=== PATIENT | female | born 1965 | race Caucasian/White ===

== ENCOUNTER → 2019-06-27 14:02 | Outpatient (CLI) | payer BC, SELFPAY ==
--- NOTE | 2019-06-27 | DI.MG.S_ITS ---
BILATERAL DIGITAL SCREENING MAMMOGRAM 3D/2D WITH CAD: 06/27/2019 CLINICAL: Routine screening. Comparison is made to exams dated: 09/02/2014 mammogram, 03/14/2013 mammogram, and 10/27/2009 mammogram - [facility]. The tissue of both breasts is heterogeneously dense. This may lower the sensitivity of mammography. Current study was also evaluated with a Computer Aided Detection (CAD) system. There are grouped calcifications in the right breast at 11 o'clock middle depth. No other significant masses, calcifications, or other findings are seen in either breast. IMPRESSION: INCOMPLETE: NEEDS ADDITIONAL IMAGING EVALUATION The grouped calcifications in the right breast are indeterminate. Spot magnification views are recommended. This exam was interpreted at Station ID: [id number]. NOTE: For mammograms, a report in lay terms will be sent to the patient. Approximately 15% of breast malignancies will not be visualized mammographically. In the management of a palpable breast mass, a negative mammogram must not discourage biopsy of a clinically suspicious lesion. Electronically Signed By: Gisela clarke/roxann:06/27/2019 14:38:09 letter sent: Additional Imaging Needed ACR BI-RADS Category 0: Incomplete 3340F
== END ==
PROVIDERS: PCP Student in an Organized Health Care Education/Training Program; Visit Provider Student in an Organized Health Care Education/Training Program
DX: Z12.31 Encounter for screening mammogram for malignant neoplasm of breast (principal); M85.851 Other specified disorders of bone density and structure, right thigh; Z78.0 Asymptomatic menopausal state; E21.3 Hyperparathyroidism, unspecified
CPT/HCPCS: 77063; 77067; 77080

== ENCOUNTER → 2019-07-17 13:37 | Outpatient (CLI) | payer BC, SELFPAY ==
--- NOTE | 2019-07-17 | DI.MG.S_ITS ---
UNILATERAL RIGHT DIGITAL DIAGNOSTIC MAMMOGRAM 3D/2D WITH ADDITIONAL VIEWS: 07/17/2019 CLINICAL: Additional evaluation requested from prior study. Comparison is made to exams dated: 06/27/2019 mammogram, 03/14/2013 mammogram, and 10/27/2009 mammogram - [facility]. The tissue of right breast is heterogeneously dense. This may lower the sensitivity of mammography. Previously identified grouped calcifications in the superior lateral right breast at 11 o'clock middle depth described on comparison screening mammograms of 06/27/19 persist with additional views. These demonstrate partial layering on lateral and magnification views, suggestive of benign milk of calcium calcifications. IMPRESSION: PROBABLY BENIGN Previously identified grouped calcifications in the superior lateral right breast at 11 o'clock middle depth described on comparison screening mammograms of 06/27/19 persist with additional views. A follow-up diagnostic mammogram in 6 months is recommended to demonstrate stability. The patient is advised to monitor her breasts and to return sooner for reevaluation if she feels anything grow or change in her breasts. This exam was interpreted at Station ID: [id number]. NOTE: For mammograms, a report in lay terms will be sent to the patient. Approximately 15% of breast malignancies will not be visualized mammographically. In the management of a palpable breast mass, a negative mammogram must not discourage biopsy of a clinically suspicious lesion. Electronically Signed By: Los Hill M.D. ecl/:07/17/2019 14:29:22 letter sent: Followup Recommended ACR BI-RADS Category 3: Probably benign 3343F
== END ==
PROVIDERS: PCP Student in an Organized Health Care Education/Training Program; Visit Provider Student in an Organized Health Care Education/Training Program
DX: R92.8 Other abnormal and inconclusive findings on diagnostic imaging of breast (principal); R92.1 Mammographic calcification found on diagnostic imaging of breast
CPT/HCPCS: 77065; G0279

== ENCOUNTER 2019-12-08 12:39 | Day surgery (SDC) | payer BC, SELFPAY ==
--- NOTE | 2019-12-08 | PATH_ITS ---
[facility] Accession Number: [id number] . 01 Material submitted: . colon - CECAL COLON POLYP 6-8MM . 02 Diagnosis: Cecum Polyp, 6-8 MM, Biopsy: Tubular adenoma. [facility] 12/09/2019 1158 Local . 02 Electronically signed: . Hardik Davenport MD, PhD, Pathologist NPI- [id number] . 01 Gross description: . CECAL COLON POLYP 6-8MM: Received in formalin are multiple fragment(s) of queen, soft tissue measuring 0.1 x 0.1 x 0.1 cm to 0.2 x 0.2 x 0.2 cm submitted entirely in 1 cassette(s) /[facility] 12/08/2019 2204 Local . 02 Pathologist provided ICD-10: D12.0 . 02 CPT . 637241 Performed at: 01 [facility] [address], [place], [place] [id number] MD Donnell Rice MD Phone: [phone] Performed at: 02 [facility] [address] , [place], [place] [id number] MD Alfreda Pimentel MD Phone: [phone]
--- NOTE | 2019-12-08 08:04 | PM.OP.ENDO ---
Operative Date/Time/Diagnoses Date of procedure: 12/08/19 Time of procedure: 13:51 Pre-op diagnosis: 1. Screening for colon cancer Post-op diagnosis: same (Cecum polyp x1, 8 mm, removed with cold biopsy forceps) Procedure & Clinicians Indications: Screening for colon cancer Surgeon: Jumana Argueta Procedure Notes SCOAP/Timeout: 13:51 Procedure in detail: ENDOSCOPIST: Jumana Argueta MD Sedation RN: Livia Saenz Rn Sedation start time: 13:51 Sedation end time: 14:13 PROCEDURE: Colonoscopy with biopsy INDICATIONS: 1. Screening for colon cancer MEDICATION: Levsin 0.125 mg sublingual, incremental doses of Versed and fentanyl until appropriate level sedation achieved. ASA CLASS: 2 CECAL WITHDRAWAL TIME: 13 minutes COMPLICATIONS: None. EXTENT OF PROCEDURE: Cecum. QUALITY OF PREP: Good with portions of liquid stool. PROCEDURE: Prior to insertion of the colonoscope, a digital rectal examination was accomplished with circumferential palpation of the distal rectal mucosa without significant findings being noted. The high-definition pediatric colonoscope was passed into the rectum in the usual fashion and advanced over to the cecum without difficulty. The ileocecal valve, appendiceal stoma, and medial wall all could be inspected and an 8 mm polyp was seen and removed with cold biopsy forceps. ASCENDING COLON: As the colonoscope was withdrawn, care was taken to expose and inspect the haustral folds and no abnormalities were seen. HEPATIC FLEXURE: Normal no polyps, diverticula or other abnormalities. TRANSVERSE COLON: Normal no polyps, diverticula or other abnormalities. DESCENDING COLON: Normal no polyps, diverticula or other abnormalities. SIGMOID COLON: Normal no polyps, diverticula or other abnormalities. RECTUM: Normal. J maneuver was produced. There was no significant perianal disease. The J maneuver was broken. The remainder of the rectum was inspected and there was no external hemorrhoid disease. The scope was withdrawn. IMPRESSION: 1. Cecal polyp x1, 8 mm, removed with cold biopsy forceps PLAN: 1. Follow-up in clinic status post pathology results. The possibility of a missed lesion including a malignancy has been discussed with the patient previously. Potential alarm symptoms have been discussed and should be reported immediately. Scope withdrawal time: 13 Sedation minutes: 22 Complications: none Post-procedure Recommendations: Will call with biopsy results Follow up: weeks (2) Disposition: PACU
--- NOTE | 2019-12-08 08:05 | P.HP_ITS ---
History of Present Illness History of Present Illness Date Patient Seen: 12/08/19 Time Patient Seen: 13:50 Chief complaint: [id number] Narrative: 54 Years Old Female seen today for consideration of a screening colonoscopy. She has never had a colonoscopy. There have been no lower GI symptoms suggesting disease such as change in bowel habits, bleeding, abdominal pain or anemia. There's been no family history of colon cancer or colon polyps. Overall health issues have been stable, including no major cardiac events for at least 6 weeks. Current Medications (verified): None Allergies (verified): 1) Amoxicillin (Critical) Past Medical History: Actinic keratoses (lichenoid) (ICD-702.0) (XKM76-U98.0) Nevus (ICD-216.9) (AZN29-V97.9) MAMMOGRAM, ABNORMAL (ICD-793.80) (HEB18-N78.8) Skin tags; irritated/inflammed (ICD-701.9) (QDJ36-O88.8) Seborrheic keratosis inflamed (ICD-702.11) (YMG21-T88.0) Skin lesion (ICD-709.9) (NDJ29-L25.9) HYPERLIPIDEMIA (ICD-272.4) (PTL94-I84.5) Parathyroid adenoma (ICD-227.1) (POB70-U31.1) Hyperparathyroidism, unspecified (ICD-252.00) (JYW93-H99.3) HYPERCALCEMIA (ICD-275.42) (QIR37-Q97.52) OSTEOPENIA (ICD-733.90) (DCX82-X94.9) MENOPAUSAL SYMPTOMS (ICD-627.2) (ZRB88-Y59.1) Obesity (ICD-278.00) (GVB89-Y34.9) Past Surgical History: Reviewed history from 04/13/2016 and no changes required: Uterine Myomectomy (02/2000) parathyroid 07/2015 Family History: Reviewed history from 03/07/2019 and no changes required: Mother: Diabetes Family Hx Diabetes Social History: Reviewed history from 09/04/2014 and no changes required: Marital Status: Children: 2 Son's Zane Occupation: Graphic Design Household Members: Fady-, and two sons. Education: AA @ [employer] Alcohol drinks/day: 0 >5/day in last 3 mos: no Caffeine use/day: 1-2 Type of Exercise: Taekwondo Exercise Times per Week: 2 Guns in home: yes Dental Care w/in 6 mos.: no Sun Exposure: frequently Seat Belt Use: 100% Smoking Status: never smoker Drug Use: never HIV High Risk Behavior: no Meds Home Medications and Allergies Home Medications Medication Instructions Recorded Confirmed Type No Known Home Medications 12/08/19 12/08/19 History Allergies Allergy/AdvReac Type Severity Reaction Status Date / Time Penicillins [PENICILLINS] Allergy Severe I TURN Verified 12/08/19 13:42 INTO ONE GIANT HIVE Review of Systems Review of Systems ROS: Yes All systems reviewed with the patient and are negative except as otherwise documented Exam Narrative Exam Narrative: General: Alert and oriented, appearing stated age and in no acute distress. Head: Head normocephalic/atraumatic. Neck: Neck soft and supple, no lymphadenopathy. Lungs: Clear to auscultation bilaterally, no wheezes, rhonchi or rales. Heart: Normal S1 and S2 with regular rate and rhythm, no audible murmurs, rubs or gallops. Abdomen: Soft, non-tender, non-distended, no organomegaly. Possitive bowel sounds. Psych: Alert and oriented x 3. Assessment & Plan Assessment & Plan narrative: Problem # 1: Colon Cancer Screening 1. Colonoscopy The nature and character of the procedure as well as anticipated results were discussed. The possibility of not completing the procedure was also discussed. Possible complications including aspiration pneumonia, bleeding, perforation and reaction to medications either for sedation or preparation and missed lesions were discussed. Questions were answered and proceeding to the colonoscopy was elected. Informed consent signed.
[2019-12-08 13:30] VITALS: BP 123/76; PULSE 88; RESP 16; TEMP 37; O2SAT 100; BMI 29.2
[2019-12-08] MEDS: HYOSCYAMINE 0.125 MG TABLET PO (13:36)
[2019-12-08] MEDS: SODIUM CHLORIDE 0.9% 1,000 ML 200 ML IV (13:39)
[2019-12-08] MEDS: MIDAZOLAM 5 MG/5 ML VIAL IV (14:14)
[2019-12-08] MEDS: fentaNYL 250 MCG/5 ML INJ IV (14:14)
[2019-12-08 14:17] VITALS: BP 97/63; PULSE 91; RESP 16; TEMP 36.9; O2SAT 98
[2019-12-08 14:22] VITALS: BP 115/69; PULSE 84; RESP 14; O2SAT 99
[2019-12-08 14:27] VITALS: BP 110/71; PULSE 86; RESP 13; O2SAT 100
[2019-12-08 14:55] VITALS: BP 105/70; PULSE 90; RESP 16; TEMP 37.2; O2SAT 100
[2019-12-08 15:08] VITALS: BP 105/68; PULSE 68; RESP 16; TEMP 37; O2SAT 100
== END 2019-12-08 15:30 | disposition home or self-care (01) ==
PROVIDERS: PCP Student in an Organized Health Care Education/Training Program; Referring Provider Student in an Organized Health Care Education/Training Program; Visit Provider Student in an Organized Health Care Education/Training Program
PROC: 0DJD8ZZ Inspection of Lower Intestinal Tract, Via Natural or Artificial Opening Endoscopic (ICD-10-PCS; CPT 45378; principal; 2019-12-08 14:00)
DX: Z12.11 Encounter for screening for malignant neoplasm of colon (principal); D12.0 Benign neoplasm of cecum
CPT/HCPCS: 45380; J2250; J3010

== ENCOUNTER → 2020-06-02 12:37 | Outpatient (CLI) | payer BC, SELFPAY ==
--- NOTE | 2020-06-02 13:05 | DI.MG.S_ITS ---
Patient Name: NEREIDA BECKWITH date: 1965 Sex: F Attending Physician: Kendall Indications: Date: 06/02/2020 12:43 At the request of: GAVIN WOOD Procedure: MM diagnostic mammo BI BILATERAL DIGITAL DIAGNOSTIC MAMMOGRAM 3D/2D: 06/02/2020 CLINICAL: Late short follow up. Comparison is made to exams dated: 07/17/2019 mammogram, 06/27/2019 mammogram, and 09/02/2014 mammogram - [facility]. The tissue of both breasts is heterogeneously dense. This may lower the sensitivity of mammography. There are stable grouped calcifications in the right breast at 11 o'clock middle depth. These layer on the lateral view. No other significant masses, calcifications, or other findings are seen in either breast. IMPRESSION: BENIGN The stable grouped calcifications in the right breast are consistent with milk of calcium and are benign. There is no mammographic evidence of malignancy. Return to annual mammogram screening schedule is recommended. This exam was interpreted at Station ID: [id number]. NOTE: For mammograms, a report in lay terms will be sent to the patient. Approximately 15% of breast malignancies will not be visualized mammographically. In the management of a palpable breast mass, a negative mammogram must not discourage biopsy of a clinically suspicious lesion. Electronically Signed By: Gisela Patel M.D. /:06/02/2020 13:56:22 letter sent: Normal Exam ACR BI-RADS Category 2: Benign Finding(s) 3342F
== END ==
PROVIDERS: PCP Student in an Organized Health Care Education/Training Program; Referring Provider Student in an Organized Health Care Education/Training Program; Visit Provider Student in an Organized Health Care Education/Training Program
DX: R92.1 Mammographic calcification found on diagnostic imaging of breast
CPT/HCPCS: 77066; G0279

== ENCOUNTER → 2021-03-10 15:08 | Outpatient (CLI) | payer BC, SELFPAY ==
--- NOTE | 2021-03-10 | DI.RAD.S_ITS ---
PROCEDURE: XR TIBIA FIBULA LT 2V INDICATIONS: LEFT LOWER LEG PAIN TECHNIQUE: 2 views of the tibia and fibula were acquired. COMPARISON: None. FINDINGS: Bones: No fractures or dislocations. No suspicious bony lesions. Soft tissues: No suspicious soft tissue calcifications or masses. IMPRESSION: No trauma found. Source of pain is not seen. Dictated by: Miles Terry M.D. on 03/10/2021 at 17:01 Approved by: Miles Terry M.D. on 03/10/2021 at 17:01
== END ==
LOC: RAD 15:09
PROVIDERS: PCP Student in an Organized Health Care Education/Training Program; Referring Provider Student in an Organized Health Care Education/Training Program; Visit Provider Student in an Organized Health Care Education/Training Program
DX: M79.662 Pain in left lower leg (principal)
CPT/HCPCS: 73590

== ENCOUNTER → 2021-03-11 10:37 | Outpatient (CLI) | payer BC, SELFPAY ==
--- NOTE | 2021-03-11 | DI.US.S_ITS ---
PROCEDURE: US PERIPH VENOUS LOW EXTREM LT INDICATIONS: Pain in left lower leg. The patient gives an additional history of recent small injury from spurring in martial arts. 7 the8 TECHNIQUE: Real-time imaging, as well as color and pulse Doppler interrogation, were performed of the lower extremity deep veins from the inguinal ligament to the popliteal fossa. COMPARISON: [facility], CR, XR TIBIA FIBULA LT 2V, 03/10/2021, 15:14. FINDINGS: The common femoral, femoral and popliteal veins are normally compressible, and free of intraluminal thrombus. Color and pulse Doppler demonstrate normal phasic intraluminal flow. There is normal augmentation response to distal compression maneuver. Additional, dedicated ultrasound scanning is performed at the area of pain involving the small. There is a focal heterogeneous nonvascular fluid collection seen at this site, measuring 2.9 x 2.3 x 0.6 cm IMPRESSION: Negative for deep venous thrombosis. Likely hematoma seen involving the small. Dictated by: Jakub Stevens M.D. on 03/11/2021 at 10:36 Approved by: Jakub Stevens M.D. on 03/11/2021 at 10:38
== END ==
PROVIDERS: PCP Student in an Organized Health Care Education/Training Program; Referring Provider Student in an Organized Health Care Education/Training Program; Visit Provider Student in an Organized Health Care Education/Training Program
DX: M79.662 Pain in left lower leg (principal)
CPT/HCPCS: 93971

== ENCOUNTER → 2021-10-27 14:57 | Outpatient (ROUT) | payer BC, SELFPAY ==
[2021-10-27 15:14] LABS: Prothrombin Time 11.7 SECONDS (10.1-12.7)
== END ==
PROVIDERS: PCP Student in an Organized Health Care Education/Training Program; Visit Provider Family Medicine
DX: R23.3 Spontaneous ecchymoses (principal); L08.9 Local infection of the skin and subcutaneous tissue, unspecified
CPT/HCPCS: 85610

== ENCOUNTER 2023-01-01 20:26 | Inpatient (IN) | payer BC, SELFPAY ==
[2023-01-01 20:33] VITALS: BP 164/74; PULSE 77; RESP 18; TEMP 36.1; O2SAT 99; BMI 29.2
[2023-01-01 21:44] VITALS: BP 166/90; PULSE 83; O2SAT 97
[2023-01-01 21:46] VITALS: BP 166/90; PULSE 88; O2SAT 97
--- NOTE | 2023-01-01 21:52 | DI.CT.S_ITS ---
PROCEDURE: CT KIDNEY URETER BLADDER (KUB) INDICATIONS: R flank pain eval for stone TECHNIQUE: Axial sections were acquired from the lung bases to the pubic symphysis. Coronal and sagittal reformats were performed. For radiation dose reduction, the following was used: automated exposure control, adjustment of mA and/or kV according to patient size. COMPARISON: None. FINDINGS: Image quality: Excellent. Lung bases: Right lower lobe pulmonary nodule measuring 0.5 cm, (3/6). No pleural effusion. Heart: No significant findings. URINARY: Right Kidney: Severe hydronephrosis. Multiple nonobstructing kidney stones. Largest measuring 0.8 cm. Mild perinephric stranding. Right Ureter: Obstructing calculus in the proximal ureter measuring 0.9 cm, (6/46). Measures 269 Hounsfield units. Left Kidney: Mild hydronephrosis. Nonobstructing calculus at the inferior pole measuring 0.8 cm. Left Ureter: Obstructing calculus in the renal pelvis measuring 1.9 cm, (4/32). Measures 1590 Hounsfield units. Bladder: No stone. Only partially distended. ABDOMEN: Liver: Unremarkable. Gallbladder: Unremarkable. Biliary ducts: Unremarkable. Pancreas: Unremarkable. Spleen: Unremarkable. Adrenal Glands: Unremarkable. Stomach and Bowel: Stomach, small bowel loops, and colon are unremarkable. Normal appendix. Peritoneum: No abnormal intraperitoneal fluid. No free air. Ventral Wall: No hernia. Abdominal Nodes: No enlarged retroperitoneal or mesenteric lymph nodes. Vessels: Aorta and inferior vena cava are normal in size. Mild calcified plaque. PELVIS: Pelvic Organs: Anteverted uterus. Pelvic Nodes: Unremarkable. Miscellaneous: No inguinal hernias are seen. Bones: No suspicious lesion. IMPRESSION: 1. Severe right hydronephrosis. Obstructing calculus in the proximal ureter measuring 0.9 cm. 2. Mild left hydronephrosis. Obstructing calculus in the renal pelvis measuring 1.9 cm. 3. Additional bilateral nonobstructing kidney stones. Dictated by: Cal Richmond M.D. on 01/01/2023 at 22:55 Approved by: Cal Richmond M.D. on 01/01/2023 at 23:02
--- NOTE | 2023-01-01 21:52 | ED_ITS ---
HPI - General Adult General Chief complaint: Abdominal Pain Stated complaint: pain lower back/rt. quad pain Time Seen by Provider: 01/01/23 21:47 Source: patient Mode of arrival: Ambulatory History of Present Illness HPI narrative: Patient is an otherwise healthy 57 year female who is here for evaluation of right-sided back/flank pain that is radiating around to the front of her right upper abdomen. It started several hours ago. It did reach its maximum intensity within approximately 1 hour. She is not having any urinary symptoms. No nausea or vomiting. The pain is not worse with palpation or movement. Has never had discomfort like this in the past. No change in bowel habits. No vaginal bleeding. Related Data Home Medications Medication Instructions Recorded Confirmed No Known Home Medications 12/08/19 01/01/23 Allergies Allergy/AdvReac Type Severity Reaction Status Date / Time Penicillins [PENICILLINS] Allergy Severe I TURN Verified 01/01/23 20:38 INTO ONE GIANT HIVE Review of Systems Constitutional Constitutional: Reports system reviewed and no additional complaints, except as documented Cardiovascular Cardiovascular: Reports system reviewed and no additional complaints, except as documented Respiratory Respiratory: Reports system reviewed and no additional complaints, except as documented Gastrointestinal Gastrointestinal: Reports system reviewed and no additional complaints, except as documented Genitourinary Genitourinary: Reports system reviewed and no additional complaints, except as documented Integumentary/Breasts Skin/Breast: Reports system reviewed and no additional complaints, except as documented Neurologic Neurologic: Reports system reviewed and no additional complaints, except as documented Hematologic/Lymphatic On Anticoagulants: No Patient History Social History household members: spouse and children Smoking Status: Never smoker alcohol intake: current Smoking Status: Never smoker alcohol intake frequency: 0-2 drinks per day Substance Use Type: does not use Exam Initial Vital Signs Initial Vital Signs: Vital Signs Temperature 97.0 F L 01/01/23 20:33 Pulse Rate 77 01/01/23 20:33 Respiratory Rate 18 01/01/23 20:33 Blood Pressure 164/74 H 01/01/23 20:33 Pulse Oximetry 99 01/01/23 20:33 Oxygen Delivery Method Room Air 01/01/23 20:33 Const General: cooperative and No ill appearing HENMT Head: normal to inspection and normocephalic Resp Effort & Inspection: normal respiratory effort Auscultation: clear to auscultation bilaterally Cardio Rate: regular rate Rhythm: regular rhythm GI Inspection: normal to inspection and non-distended Palpation: No firm and No tender Back/Spine/Pelvis Back: No CVA tenderness Skin General: no rashes or lesions noted Neuro General: patient alert, patient awake and moves all extremities Extrem General: capillary refill normal Course Orders Ordered: ED Orders 01/01/23 21:52 CT kidney ureter bladder (KUB) Stat 01/01/23 22:15 Complete Blood Count AUTO DIFF Stat Comprehensive Metabolic Panel Stat Lipase Stat 01/01/23 23:19 Consult to Urology Stat 01/01/23 23:30 COVID19 -Nasal RAPID Stat 01/01/23 23:33 Consult to Physician Stat Hydromorphone HCl (Hydromorphone 0.5 Mg Inj) 0.5 mg IV Q2H PRN PRN Reason: Pain, Mild (1-3) Last Admin: 01/02/23 02:07 Dose: 0.5 mg Documented By: AM Sodium Chloride (Normal Saline 0.9%) 1,000 mls @ 100 mls/hr IV CONT SANTOSH Last Admin: 01/02/23 00:57 Dose: 100 mls/hr Documented By: AM Ondansetron HCl (Ondansetron 4 Mg Odt) 4 mg PO NOW PRN PRN Reason: Nausea And Vomiting Ondansetron HCl (Ondansetron 4 Mg/2 Ml Inj) 4 mg IV NOW PRN PRN Reason: Nausea And Vomiting Last Admin: 01/01/23 22:28 Dose: 4 mg Documented By: HNG Ondansetron HCl (Ondansetron 4 Mg/2 Ml Inj) 4 mg IV Q4HR PRN PRN Reason: Nausea And Vomiting Discontinued Medications Ceftriaxone Sodium 1,000 mg/ (Sodium Chloride) 100 mls @ 200 mls/hr IV NOW ONE Stop: 01/01/23 23:28 Last Infusion: 01/02/23 00:05 Dose: 0 mls/hr Documented By: Admin: 01/01/23 23:37 Dose: 200 mls/hr Documented By: RL Ketorolac Tromethamine (Ketorolac 30 Mg/Ml Vial) 30 mg IV NOW ONE Stop: 01/01/23 21:53 Last Admin: 01/01/23 22:27 Dose: 30 mg Documented By: HNG Trimethoprim/Sulfamethoxazole (Trimeth/Sulfa 160/800 (Ds) Tablet) 1 tab PO NOW ONE Stop: 01/01/23 21:53 Last Admin: 01/01/23 22:27 Dose: 1 tab Documented By: JIM Vital Signs Vital signs: Vital Signs - 8 hr 01/01/23 20:33 01/01/23 21:46 01/01/23 21:44 Temperature 97.0 F L Pulse Rate 77 88 Respiratory Rate 18 Blood Pressure 164/74 H 166/90 H 166/90 H Pulse Oximetry 99 97 Oxygen Delivery Method Room Air Room Air 01/01/23 21:44 Temperature Pulse Rate 83 Respiratory Rate Blood Pressure Pulse Oximetry 97 Oxygen Delivery Method Medical Decision Making Lab Data Lab results reviewed: Yes I reviewed the patient's lab results. 01/01/23 22:15 01/01/23 22:15 Labs: Lab Results 01/01/23 01/01/23 01/01/23 Range/Units 22:15 22:15 23:30 WBC 15.0 H (4.5-11.0) X10^3/uL RBC 4.38 (4.0-5.2) X10^6/uL Hgb 13.0 (12.0-16.0) g/dL Hct 37.5 (36-46) % MCV 85.6 (80-100) fL MCH 29.7 (26-34) PG MCHC 34.7 (30-36) % RDW 13.6 (11.6-14.8) % Plt Count 242 (150-400) X10^3/uL Neut % (Auto) 84.8 H (50-75) % Lymph % (Auto) 9.0 L (25-40) % [place] % (Auto) 5.7 (3-14) % Eos % (Auto) 0.3 L (2-4) % Baso % (Auto) 0.2 (0-2) % Neut # (Auto) 28221 H (9813-4958) /uL Lymph # (Auto) 1300 (2271-7004) /uL [place] # (Auto) 900 (0-900) /uL Eos # (Auto) 100 (0-450) /uL Baso # (Auto) 0 (0-100) /uL Sodium 139 (137-145) mmol/L Potassium 4.7 (3.4-5.1) mmol/L Chloride 105 (98-107) mmol/L Carbon Dioxide 23 (22-32) mmol/L BUN 19 H (7-17) mg/dL Creatinine 1.12 H (0.52-1.04) mg/dL Estimated GFR 57 L (>60) mL/min BUN/Creatinine Ratio 17.0 (6-22) Glucose 131 H (70-100) mg/dL Calcium 9.7 (8.4-10.2) mg/dL Total Bilirubin 0.6 (0.2-1.3) mg/dL AST 22 (14-36) IU/L ALT 23 (<35) IU/L Alkaline Phosphatase 88 (38-126) U/L Total Protein 7.6 (6.3-8.2) g/dL Albumin 4.4 (3.5-5.0) g/dL Globulin 3.2 (1.7-4.1) g/dL Albumin/Globulin Ratio 1.4 (1.0-2.8) Lipase 108 (23-300) U/L SARS-CoV-2 (PCR) Negative (Negative) Urine Dip Bedside Urine Glucose Negative Bedside Urine Bilirubin - Negative Bedside Urine Ketone - Negative Urine Specific [place] 1.030 Bedside Urine Occult Blood +++ Bedside Urine pH 5.5 Bedside Urine Protein + 30 Bedside Urine Urobilinogen - Negative Bedside Urine Nitrite + Positive Bedside Urine Leukocytes + 70 Esterase Point of care testing: Urine Dip Bedside Urine Glucose Negative Bedside Urine Bilirubin - Negative Bedside Urine Ketone - Negative Urine Specific [place] 1.030 Bedside Urine Occult Blood +++ Bedside Urine pH 5.5 Bedside Urine Protein + 30 Bedside Urine Urobilinogen - Negative Bedside Urine Nitrite + Positive Bedside Urine Leukocytes + [address] scan - abdomen/pelvis: Radiologist's Impression: PROCEDURE:? CT KIDNEY URETER BLADDER (KUB) ? INDICATIONS:? R flank pain eval for stone ? TECHNIQUE:? Axial sections were acquired from the lung bases to the pubic symphysis.? Coronal and sagittal reformats were performed.? For radiation dose reduction, the following was used: ?automated exposure control, adjustment of mA and/or kV according to patient size.? ? COMPARISON:? None. ? FINDINGS:? Image quality:? Excellent.? ? Lung bases:? Right lower lobe pulmonary nodule measuring 0.5 cm, (3/6).? No pleural effusion.? ? Heart:? No significant findings. ? URINARY: Right Kidney:? Severe hydronephrosis.? Multiple nonobstructing kidney stones.? Largest measuring 0.8 cm.? Mild perinephric stranding. Right Ureter:? Obstructing calculus in the proximal ureter measuring 0.9 cm, ().? Measures 269 Hounsfield units.? ? Left Kidney:? Mild hydronephrosis.? Nonobstructing calculus at the inferior pole measuring 0.8 cm. Left Ureter:? Obstructing calculus in the renal pelvis measuring 1.9 cm, ().? Measures 1590 Hounsfield units. ? Bladder:? No stone.? Only partially distended. ? ABDOMEN: Liver:? Unremarkable.? ? Gallbladder:? Unremarkable.? ? Biliary ducts:? Unremarkable.? ? Pancreas:? Unremarkable.? ? Spleen:? Unremarkable.? ? Adrenal Glands:? Unremarkable.? ? ? Stomach and Bowel:? Stomach, small bowel loops, and colon are unremarkable.? Normal appendix. Peritoneum:? No abnormal intraperitoneal fluid.? No free air.? ? Ventral Wall: ? No hernia.? Abdominal Nodes:? No enlarged retroperitoneal or mesenteric lymph nodes.? Vessels:? Aorta and inferior vena cava are normal in size.? Mild calcified plaque.? ? PELVIS: Pelvic Organs:? Anteverted uterus.? ? Pelvic Nodes: Unremarkable. Miscellaneous: No inguinal hernias are seen. ? ? ? Bones:? No suspicious lesion. ? IMPRESSION:? 1. Severe right hydronephrosis.? Obstructing calculus in the proximal ureter measuring 0.9 cm. ? 2. Mild left hydronephrosis.? Obstructing calculus in the renal pelvis measuring 1.9 cm. ? 3. Additional bilateral nonobstructing kidney stones. MDM Narrative Medical decision making narrative: Patient does have right-sided flank pain that is not reproducible with palpation. She is a nitrite positive urine without specific UTI symptoms. Did consider pyelonephritis. Was given a dose of oral Bactrim and CT scan was ordered. The CT scan does show a proximal right-sided ureteral stone. Also has a slight increase in her creatinine. After the Toradol she did report improvem ent of symptoms but not complete resolution. Given the fact that she has have a nitrite positive urine, an increase in her creatinine and the large proximal ureteral stone in the hydronephrosis I did discuss the case with Dr. Laura on-call for Urology who recommended that the patient be admitted under her primary doctor in anticipation of urologic intervention tomorrow. I then discussed the case with Dr. Morrow who is on-call for the patient's primary doctor who will admit. Discussed the need for admission with the patient. Urology recommended given the patient IV Rocephin. Will admit the patient for further evaluation and treatment. Discharge Plan Departure Patient Disposition: Admitted As Inpatient Clinical Impression: CAROLYN (acute kidney injury), UTI (urinary tract infection), Calculus of proximal right ureter Admit Date/Time: 01/01/23 23:33 Admit Provider: Darryl Jimenez
[2023-01-01] MEDS: KETOROLAC 30 MG/ML VIAL IV (22:27)
[2023-01-01] MEDS: TRIMETH/SULFA 160/800 (DS) TABLET 1 TAB PO (22:27)
[2023-01-01] MEDS: ONDANSETRON 4 MG/2 ML INJ IV (22:28)
[2023-01-01 22:30] LABS: Add Manual Diff / Slide Review NO; Basophils Absolute Auto 0 /uL (0-100); Basophils Percent Auto 0.2 % (0-2); Eosinophils Absolute Auto 100 /uL (0-450); Eosinophils Percent Auto 0.3 % (2-4); Hematocrit 37.5 % (36-46); Lymphocytes Absolute Auto 1300 /uL (1100-4500); Mean Corpuscular HGB Conc 34.7 % (30-36); Mean Corpuscular Hemoglobin 29.7 PG (26-34); Mean Corpuscular Volume 85.6 fL (80-100); Monocytes Absolute Auto 900 /uL (0-900); Monocytes Percent Auto 5.7 % (3-14); Neutrophils Absolute Auto 12700 /uL (1500-7000); Neutrophils Percent Auto 84.8 % (50-75); Platelet Count 242 X10^3/uL (150-400); Red Blood Cell Count 4.38 X10^6/uL (4.0-5.2); Red Cell Distribution Width 13.6 % (11.6-14.8)
[2023-01-01 22:39] LABS: Alanine Aminotransferase 23 IU/L (<35); Albumin 4.4 g/dL (3.5-5.0); Albumin Globulin Ratio 1.4 (1.0-2.8); Alkaline Phosphatase 88 U/L (38-126); Aspartate Aminotransferase 22 IU/L (14-36); Bilirubin Total 0.6 mg/dL (0.2-1.3); Blood Urea Nitrogen 19 mg/dL (7-17); Calcium 9.7 mg/dL (8.4-10.2); Carbon Dioxide 23 mmol/L (22-32); Chloride 105 mmol/L (98-107); Estimated Glomerular Filt Rate 57 mL/min (>60); Globulin 3.2 g/dL (1.7-4.1); Glucose 131 mg/dL (70-100); HEMOLYSIS 29 (0-50); Lipase 108 U/L (23-300); Potassium 4.7 mmol/L (3.4-5.1); Sodium 139 mmol/L (137-145); Total Protein 7.6 g/dL (6.3-8.2)
[2023-01-01] MEDS: cefTRIAXone 1,000 MG in SODIUM CHLORIDE 0.9% 100 ML 200 MG IV (23:37)
[2023-01-01 23:47] LABS: COVID19 -Nasal RAPID Negative (Negative)
[2023-01-01 23:56] VITALS: O2SAT 94
[2023-01-01 23:57] VITALS: BP 153/79; O2SAT 97
[2023-01-02] VITALS (11 sets, daily range): BP systolic 110–146; BP diastolic 64–79; PULSE 78–123; RESP 11–19; TEMP 36.3–37.7; O2SAT 94–100; BMI 29.2; BMI 29.5
--- NOTE | 2023-01-02 | DI.RAD.S_ITS ---
PROCEDURE: XR ABDOMEN 1V INDICATIONS: STENT PLACEMENT COMPARISON: None. FINDINGS: Single intraoperative low resolution fluoroscopic spot film of the right upper quadrant shows ureteral stent proper position IMPRESSION: Fluoroscopic guidance Approved by: Mingo Elias M.D. on 01/02/2023 at 13:04
--- NOTE | 2023-01-02 | DI.RAD.S_ITS ---
PROCEDURE: XR KUB INDICATIONS: Right proximal ureteral stone TECHNIQUE: One view of the abdomen acquired. COMPARISON: [facility], CT, CT KIDNEY URETER BLADDER (KUB), 01/01/2023, 22:04. FINDINGS: Surgical changes and devices: None. Bowel: Bowel gas pattern is normal. Soft tissues: There are multiple renal calculi bilaterally. The largest stone is in the right kidney measuring 2.5 cm. Visualized solid organ contours appear normal in size. Bones: No suspicious bony lesions. IMPRESSION: 1. Multiple renal calculi bilaterally. Dictated by: Miranda Ruelas M.D. on 01/02/2023 at 8:56 Approved by: Miranda Ruelas M.D. on 01/02/2023 at 8:57
[2023-01-02] MEDS: SODIUM CHLORIDE 0.9% 1,000 ML 100 ML IV (00:57)
[2023-01-02] MEDS: HYDROMORPHONE 0.5 MG INJ IV (02:07)
--- NOTE | 2023-01-02 04:56 | PC.NURSE ---
Pt arrived via wheelchair from ED at 0000. Ambulated to bed stable on feet denying nausea or dizziness. C/o R flank pain 11/03. 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 Pt oriented to room and call light.
[2023-01-02] MEDS: SODIUM CHLORIDE 0.9% 500 ML 1000 ML IV (06:30)
--- NOTE | 2023-01-02 06:38 | PC.NURSE ---
Dr. Laura called this RN at 0610, wanting order for CBC w diff, BMP and one now 500ml NS bolus. Orders placed in.
[2023-01-02 06:57] LABS: Add Manual Diff / Slide Review NO; Basophils Absolute Auto 0 /uL (0-100); Basophils Percent Auto 0.1 % (0-2); Eosinophils Absolute Auto 0 /uL (0-450); Hematocrit 35.1 % (36-46); Hemoglobin 12.2 g/dL (12.0-16.0); Lymphocytes Absolute Auto 600 /uL (1100-4500); Lymphocytes Percent Auto 3.8 % (25-40); Mean Corpuscular HGB Conc 34.8 % (30-36); Mean Corpuscular Hemoglobin 29.8 PG (26-34); Mean Corpuscular Volume 85.8 fL (80-100); Monocytes Absolute Auto 1200 /uL (0-900); Neutrophils Absolute Auto 14800 /uL (1500-7000); Neutrophils Percent Auto 89.1 % (50-75); Platelet Count 183 X10^3/uL (150-400); Red Blood Cell Count 4.08 X10^6/uL (4.0-5.2); Red Cell Distribution Width 13.8 % (11.6-14.8); White Blood Cell Count 16.6 X10^3/uL (4.5-11.0)
[2023-01-02 07:05] LABS: Blood Urea Nitrogen 19 mg/dL (7-17); Calcium 9.1 mg/dL (8.4-10.2); Carbon Dioxide 19 mmol/L (22-32); Chloride 109 mmol/L (98-107); Estimated Glomerular Filt Rate 45 mL/min (>60); Glucose 127 mg/dL (70-100); HEMOLYSIS < 15 (0-50); Potassium 4.2 mmol/L (3.4-5.1); Sodium 139 mmol/L (137-145)
--- NOTE | 2023-01-02 08:25 | PM.CN ---
History of Present Illness Consult details Date Patient Seen: 01/02/23 Time Patient Seen: 07:05 Chief complaint: pain lower back/rt. quad pain Reason for consult: Obstructing right ureteral stone Requesting provider: Fady Whyte Narrative: Hayley is a 57-year-old female who was experiencing her usual health until she had onset of rather acute and severe right-sided flank and abdominal pain early in the day yesterday. This prompted her presentation to the [facility] ED. CT KUB demonstrates severe right hydronephrosis secondary to obstructing 9 mm right proximal ureteral calculus. Two additional stones right kidney that are nonobstructing. There is a 1.9 cm left renal pelvic calculus seen as well as a 8 mm left lower pole calculus nonobstructing. Hounsfield units were measured at 269 for the right proximal ureteral calculus and greater than 1500 for the left renal pelvic calculus. Urinalysis was nitrite positive and showed 3+ leukocytes and rbc's. WBC and creatinine were mildly elevated at presentation in those numbers have risen in the few hours since admission. She is been hemodynamically stable since admission other than mild tachycardia of rate proximally 100. She is remained afebrile. She provides a history of having had frequent UTIs in her 20s and 30s. No clinical history of pyelonephritis. She provides a history of having been diagnosed with hyperparathyroidism in the past and subsequently underwent parathyroidectomy. She has no previous knowledge of having a urinary tract stone. Meds Home Medications and Allergies Home Medications Medication Instructions Recorded Confirmed Type No Known Home Medications 12/08/19 01/01/23 History Allergies Allergy/AdvReac Type Severity Reaction Status Date / Time Penicillins [PENICILLINS] Allergy Severe I TURN Verified 01/01/23 20:38 INTO ONE GIANT HIVE Review of Systems Review of Systems ROS: Yes All systems reviewed with the patient and are negative except as otherwise documented Exam Vital Signs (past 8 hours): - 01/02/23 04:00 Temperature 98.0 F Pulse Rate 103 H Respiratory Rate 18 Blood Pressure 125/64 Pulse Oximetry 96 Oxygen Delivery Method Room Air Narrative Exam Narrative: She is a well-developed, well-nourished middle-aged female in no acute distress. Head/neck-no visible evidence of JVD or adenopathy. Sclera clear and pupils are equal and round bilaterally. Chest-equal and unlabored expansion bilaterally. Heart-normal rhythm, rate approximately 90. Extremities are warm. Objective Labs 01/02/23 06:38 01/02/23 06:38 Labs: Laboratory Results - last 24 hr 01/01/23 01/01/23 01/01/23 22:15 22:15 23:30 WBC 15.0 H RBC 4.38 Hgb 13.0 Hct 37.5 MCV 85.6 MCH 29.7 MCHC 34.7 RDW 13.6 Plt Count 242 Neut % (Auto) 84.8 H Lymph % (Auto) 9.0 L [place] % (Auto) 5.7 Eos % (Auto) 0.3 L Baso % (Auto) 0.2 Neut # (Auto) 75376 H Lymph # (Auto) 1300 [place] # (Auto) 900 Eos # (Auto) 100 Baso # (Auto) 0 Sodium 139 Potassium 4.7 Chloride 105 Carbon Dioxide 23 BUN 19 H Creatinine 1.12 H Estimated GFR 57 L BUN/Creatinine Ratio 17.0 Glucose 131 H Calcium 9.7 Total Bilirubin 0.6 AST 22 ALT 23 Alkaline Phosphatase 88 Total Protein 7.6 Albumin 4.4 Globulin 3.2 Albumin/Globulin Ratio 1.4 Lipase 108 SARS-CoV-2 (PCR) Negative 01/02/23 01/02/23 06:38 06:38 WBC 16.6 H RBC 4.08 Hgb 12.2 Hct 35.1 L MCV 85.8 MCH 29.8 MCHC 34.8 RDW 13.8 Plt Count 183 Neut % (Auto) 89.1 H Lymph % (Auto) 3.8 L [place] % (Auto) 7.0 Eos % (Auto) 0.0 L Baso % (Auto) 0.1 Neut # (Auto) 49750 H Lymph # (Auto) 600 L [place] # (Auto) 1200 H Eos # (Auto) 0 Baso # (Auto) 0 Sodium 139 Potassium 4.2 Chloride 109 H Carbon Dioxide 19 L BUN 19 H Creatinine 1.36 H Estimated GFR 45 L BUN/Creatinine Ratio 14.0 Glucose 127 H Calcium 9.1 Total Bilirubin AST ALT Alkaline Phosphatase Total Protein Albumin Globulin Albumin/Globulin Ratio Lipase SARS-CoV-2 (PCR) [facility] Social History household members: spouse and children Tobacco & Substance Use Smoking Status: Never smoker alcohol intake: current Assessment & Plan Assessment & Plan narrative: Assessment: 1. Obstructing right proximal ureteral calculus. 2. UTI/right pyelonephritis. 3. Bilateral nephrolithiasis. 4. History of UTI. 5. Will benefit in the future with likely right ureteroscopic laser lithotripsy. 6. Will likely benefit in the future with treatment of large volume left renal pelvic calculus via PCNL. Plan: 1. Discussion and informed consent obtained today for CYSTOSCOPY/PLACEMENT RIGHT URETERAL STENT. 2. Contact microbiology to confirm that urinalysis at admission was submitted for culture. I do not see those entries in the EHR. 3. Continue broad-spectrum IV antibiotic and plan for discharge on oral antibiotics pending final culture.
--- NOTE | 2023-01-02 11:36 | PM.PREOP ---
Pre-operative Note COVID-19 Criteria for continued procedure: Expected advancement of disease process, Possibility delay results in more complex future surgery or treatment, Continuing or worsening of significant or severe pain, Delay expected to result in less-positive ultimate med/surg outcome and Non-surgical alternatives not available or appropriate per current SOC Interval Note History & Physical reviewed/Exam performed by Physician: Yes Changes to H&P: No
--- NOTE | 2023-01-02 12:13 | SUR.OPER ---
Lithotomy on padded OR bed, head on pillow, arms secured on padded arm boards at <90 degrees abduction. Legs secured in padded yellow fins stirrups.
--- NOTE | 2023-01-02 12:16 | P.OP_ITS ---
Operative Date/Time/Diagnoses Date of procedure: 01/02/23 Time of procedure: 12:10 Pre-op diagnosis: 1. Obstructing 9 mm right proximal ureteral calculus. 2. UTI/right pyelonephritis. 3. History of UTI. 4. Bilateral nephrolithiasis. Procedure & Clinicians Procedure: 1. Cystoscopy/right ureteral stone manipulation without removal. 2. Cystoscopy/placement right ureteral (6 Setswana by 22-32 cm multi-length). Same procedure as scheduled: Yes Indications: 1. Obstructing 9 mm right proximal ureteral calculus. 2. Right pyelonephritis. 3. History of UTI. 4. Bilateral nephrolithiasis. Surgeon: Stanton Laura Click Yes if Unassisted: Yes Anesthesia Type: General Operative Notes Findings: 1. Urethra-normal caliber without mass or lesion. 2. Bladder-extensive cystitis cystica. Normal position of ureteral orifices bilaterally. There was a generous quantity of amorphous debris lying dependently within the bladder floor. Closure Type: not applicable Specimen(s): none sent Applied: other (Six Setswana by 22-32 cm multi-length.) Estimated Blood Loss (mL): 0 Blood products transfused: none Procedure in detail: The patient was positioned in supine was administered general anesthesia. She was then repositioned in semi lithotomy in the lower abdomen, genitalia, and groin were then prepped and draped in sterile fashion. The 22 Setswana eduardo endoscope on passing lower urinary tract with findings as described above. A 0.35 hybrid guidewire was then advanced through the working channel of the eduardo endoscope and advanced in the right ureteral orifice and passed proximally under direct and fluoroscopic guidance. Next, a 6 Setswana by 22-32 cm multi-length stent was selected. This was advanced over the hybrid guidewire, again under direct and fluoroscopic guidance. NO RETRIEVAL LINE WAS LEFT ATTACHED. The bladder was filled and drained on 2 occasions to rid it of dependent debris. The eduardo endoscope was then removed. The patient was then repositioned in supine, awakened, and transferred to [facility] stable condition. Complications: none Post-operative Condition: stable Disposition: PACU Plan for aftercare: 1. Discharge home today on broad-spectrum oral antibiotic. 2. Follow-up urine culture when final. 3. Return to Urology Clinic in 10-14 days with KUB.
[2023-01-02] MEDS: cefTRIAXone 1,000 MG in SODIUM CHLORIDE 0.9% 100 ML 200 MG IV (12:28)
--- NOTE | 2023-01-02 13:01 | SUR.PHASEI ---
Report called to Amari.
[2023-01-02] MEDS: OXYCODONE IR 5 MG TABLET PO (13:07)
--- NOTE | 2023-01-02 13:08 | SUR.PHASEI ---
Patient reported bladder discomfort. Medicated with Oxycodone.
--- NOTE | 2023-01-02 13:24 | SUR.PHASEI ---
Patient transferred to the floor by stretcher. Report given to Senait. VS stable. IV patient.
--- NOTE | 2023-01-02 13:32 | SUR.PHASEI ---
Patient's glasses at bedside.
--- NOTE | 2023-01-02 13:54 | P.HP_ITS ---
History of Present Illness History of Present Illness Date Patient Seen: 01/02/23 Time Patient Seen: 13:54 Date of Onset of Symptoms: 01/01/23 Chief complaint: pain lower back/rt. quad pain Narrative: This is a very pleasant healthy female who has no chronic medical problems and is not taking any chronic medications. She presents to the emergency department on same day of onset of symptoms with complaints of progressively worsening righ t flank pain radiating to her groin. Patient with previous ovarian cyst that ruptured and she was concerned about this and this is what prompted her to the ER. She was found to have a possible UTI with large obstructing right ureteral stone, 9 mm with severe hydronephrosis and bilateral nephrolithiasis and was admitted to the hospital for further treatment. Dr. Laura was consulted and asked that Medicine admit patient and he plan to take patient to the OR the next day. Patient was admitted given IV pain medications and antiemetics and made NPO for planned for stent placement. Patient has not had previous history of nephrolithiasis. Patient has had history of UTIs previously. Otherwise patient has been doing well without any complaints. Past medical history: 1. Ovarian cysts 2. Uterine fibroids 3. Hyperparathyroidism due to parathyroid adenoma Current medications none Allergies penicillin which causes urticaria Past surgical history: 1. Uterine myomectomy February of 2000 2. Parathyroid adenoma, July 2015 Family history: Mom with diabetes Maternal grandmother with diabetes No family history of nephrolithiasis or cancer or asthma or coronary artery disease Health related behavior: Patient does not smoke she never smoker. She does not drink alcohol. She exercises regularly hiking Social history patient is she lives in [place]. She has 2 sons An kathryn and Bogdan and lives with her , Fady Review of systems: Negative for fever, chills, myalgias Negative for cough or respiratory symptoms. Negative for GI symptoms Negative for dysuria, hematuria, frequent urination. Negative for any injuries to her back etc.. Negative for any headaches PFSH Social History household members: spouse and children Smoking Status: Never smoker alcohol intake: current Meds Home Medications and Allergies Home Medications Medication Instructions Recorded Confirmed Type ciprofloxacin 250 mg/5 mL oral 250 mg (5 mL) PO Q12H #100 mL 01/02/23 Rx suspension oxycodone 5 mg tablet 5 mg PO Q4H PRN pain #14 tabs 01/02/23 Rx Allergies Allergy/AdvReac Type Severity Reaction Status Date / Time Penicillins [PENICILLINS] Allergy Severe I TURN Verified 01/01/23 20:38 INTO ONE GIANT HIVE Exam Vital Signs (past 8 hours): - 01/02/23 08:36 01/02/23 10:43 01/02/23 12:35 Temperature 98 F 99.7 F H Pulse Rate 103 H 123 H 109 H Respiratory Rate 17 16 15 Blood Pressure 136/68 131/75 118/77 Pulse Oximetry 100 95 97 Oxygen Delivery Method Room Air Room Air Oxygen Flow Rate 0 01/02/23 12:40 01/02/23 12:55 01/02/23 13:02 Temperature 99.8 F H Pulse Rate 117 H 116 H Respiratory Rate 14 11 L Blood Pressure 110/79 127/79 Pulse Oximetry 96 97 Oxygen Delivery Method Room Air Room Air Oxygen Flow Rate 01/02/23 12:31 01/02/23 12:25 01/02/23 13:48 Temperature 98.6 F 98.7 F Pulse Rate 115 H 115 H 80 Respiratory Rate 15 15 18 Blood Pressure 115/69 113/67 146/67 H Pulse Oximetry 95 94 98 Oxygen Delivery Method Room Air Room Air Oxygen Flow Rate 0 Oxygen Delivery Method Room Air Oxygen Flow Rate 0 Narrative Exam Narrative: Patient is alert and oriented no apparent distress HEENT is unremarkable Neck: Supple without adenopathy or thyromegaly Chest: Clear to auscultation without wheezes rhonchi or crackles Cor: Normal rhythm with a rate in the low 100s Abdomen: Positive bowel sounds, soft, nontender, nondistended, no flank tender ness Extremities: No edema, pulses intact, DTRs intact Skin no rashes Neurologic exam nonfocal No palpable tenderness of paraspinous muscles Objective Labs 01/02/23 06:38 01/02/23 06:38 Labs: Laboratory Results - last 24 hr 01/01/23 01/01/23 01/01/23 22:15 22:15 23:30 WBC 15.0 H RBC 4.38 Hgb 13.0 Hct 37.5 MCV 85.6 MCH 29.7 MCHC 34.7 RDW 13.6 Plt Count 242 Neut % (Auto) 84.8 H Lymph % (Auto) 9.0 L [place] % (Auto) 5.7 Eos % (Auto) 0.3 L Baso % (Auto) 0.2 Neut # (Auto) 49322 H Lymph # (Auto) 1300 [place] # (Auto) 900 Eos # (Auto) 100 Baso # (Auto) 0 Sodium 139 Potassium 4.7 Chloride 105 Carbon Dioxide 23 BUN 19 H Creatinine 1.12 H Estimated GFR 57 L BUN/Creatinine Ratio 17.0 Glucose 131 H Calcium 9.7 Total Bilirubin 0.6 AST 22 ALT 23 Alkaline Phosphatase 88 Total Protein 7.6 Albumin 4.4 Globulin 3.2 Albumin/Globulin Ratio 1.4 Lipase 108 SARS-CoV-2 (PCR) Negative 01/02/23 01/02/23 06:38 06:38 WBC 16.6 H RBC 4.08 Hgb 12.2 Hct 35.1 L MCV 85.8 MCH 29.8 MCHC 34.8 RDW 13.8 Plt Count 183 Neut % (Auto) 89.1 H Lymph % (Auto) 3.8 L [place] % (Auto) 7.0 Eos % (Auto) 0.0 L Baso % (Auto) 0.1 Neut # (Auto) 90343 H Lymph # (Auto) 600 L [place] # (Auto) 1200 H Eos # (Auto) 0 Baso # (Auto) 0 Sodium 139 Potassium 4.2 Chloride 109 H Carbon Dioxide 19 L BUN 19 H Creatinine 1.36 H Estimated GFR 45 L BUN/Creatinine Ratio 14.0 Glucose 127 H Calcium 9.1 Total Bilirubin AST ALT Alkaline Phosphatase Total Protein Albumin Globulin Albumin/Globulin Ratio Lipase SARS-CoV-2 (PCR) Assessment & Plan Assessment & Plan narrative: 57-year-old very healthy female with nephrolithiasis, obstructing with severe right hydronephrosis and possible UTI Assessment 1. Nephrolithiasis with obstruction and severe hydronephrosis. Dr. Laura consulted and took patient to the OR in stent was placed. Patient c urrently is pain-free. She is still waking up from anesthesia. Plan: As long as she is doing well today she will be discharged later today on oral Cipro 250 mg twice daily for 7 days. We will await the urine cultures. Dr. Laura did not want Flomax. She will have as needed pain medications. S he will follow up with Dr. Laura as recommended. I answered her questions and she will follow up with her PCP Dr. Taylor next week. Assessment 2. Possible UTI Plan cultures pending. Elevated white count could be due to nephrolithiasis, pain etc. but we will continue to treat with Cipro as an outpatient and await cultures Code status is full code Disposition likely discharge later today
--- NOTE | 2023-01-02 16:55 | PC.NURSE ---
Discharge Note Patient A&O, VSS, RA, no complaints of pain/discomfort. Discharge plan/packet reviewed with patient, patient agreeable to plan. PIV discontinued. Patient able to dress self and pack all belongings. Patient taken down via wheelchair to POV. 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
[2023-01-02 17:29] LABS: Uric Acid 6.3 mg/dL (2.5-6.2)
[2023-01-04 11:00] LABS: Parathyroid Hormone Int 88 pg/mL (15-65)
--- NOTE | 2023-02-05 07:20 | PC.NURSE ---
Late Entry Note 01/02/2023- Patient medicated with 0.5mg IV Dilaudid at approximately 0936. This RN forgot to scan medication in NOV.
== END 2023-01-02 16:50 | disposition home or self-care (01) | DRG 660 ==
LOC: ED 21:47 → AC 23:34
PROVIDERS: Family Medicine; Specialist; Admitting Provider Family Medicine; Emergency Provider Emergency Medicine; PCP Family Medicine; Referring Provider Emergency Medicine; Visit Provider Family Medicine
PROC: 0T768DZ Dilation of Right Ureter with Intraluminal Device, Via Natural or Artificial Opening Endoscopic (ICD-10-PCS; principal; 2023-01-02 11:30)
DX: N13.6 Pyonephrosis (principal); N20.1 Calculus of ureter; N39.0 Urinary tract infection, site not specified; Z20.822 Contact with and (suspected) exposure to COVID-19
CPT/HCPCS: 36415; 52330; 52332; 74018; 74176; 76000; 80048; 80053; 81003; 83690; 83970; 84550; 85025; 87635; 96365; 96375; 99233; 99284; C9803; J0696; J1170; J1885; J2250; J2405; J2704; J3010

== ENCOUNTER → 2023-01-15 16:38 | Outpatient (CLI) | payer BC, SELFPAY ==
[2023-01-02 00:09] VITALS: BMI 29.2
--- NOTE | 2023-01-15 16:39 | DI.RAD.S_ITS ---
PROCEDURE: XR KUB INDICATIONS: ureter calculus TECHNIQUE: One view of the abdomen acquired. COMPARISON: [facility], CR, XR ABDOMEN 1V, 01/02/2023, 12:12. [facility], CR, XR KUB, 01/02/2023, 7:26. FINDINGS: Surgical changes and devices: Right ureteral stent is in place. Bowel: Bowel gas pattern is normal. Soft tissues: Suspected stone is seen in the mid region of the right kidney measuring 0.9 cm, and along the proximal right ureter stent measuring 1 cm. The largest stone in the left renal pelvis region measures 2.2 cm. Bones: No suspicious bony lesions. IMPRESSION: Renal calculi as above. Dictated by: Garret Pratt M.D. on 01/16/2023 at 11:57 Approved by: Garret Pratt M.D. on 01/16/2023 at 12:00
== END ==
PROVIDERS: PCP Family Medicine; Referring Provider Specialist; Visit Provider Specialist
DX: N20.1 Calculus of ureter (principal); Z96.0 Presence of urogenital implants
CPT/HCPCS: 74018

== ENCOUNTER 2023-01-19 08:36 | Day surgery (SDC) | payer BC, SELFPAY ==
[2023-01-02 00:09] VITALS: BMI 29.2
[2023-01-19] VITALS (9 sets, daily range): BP systolic 85–126; BP diastolic 49–72; PULSE 66–85; RESP 10–18; TEMP 36.1–36.2; O2SAT 96–99; BMI 29.2
[2023-01-19] MEDS: LACTATED RINGERS 1,000 ML 21 ML IV (09:49)
[2023-01-19] MEDS: ACETAMINOPHEN IV 1,000 MG/100 ML VIAL 400 MG IV (10:48)
--- NOTE | 2023-01-19 10:51 | PM.PREOP ---
Pre-operative Note COVID-19 Criteria for continued procedure: Expected advancement of disease process, Possibility delay results in more complex future surgery or treatment, Continuing or worsening of significant or severe pain, Deterioration of the patient's condition or overall health, Delay expected to result in less-positive ultimate med/surg outcome and Non-surgical alternatives not available or appropriate per current SOC Interval Note History & Physical reviewed/Exam performed by Physician: Yes Changes to H&P: No
[2023-01-19] MEDS: CIPROFLOXACIN 400 MG/200 ML PIGGYBACK 200 MG IV (11:05)
--- NOTE | 2023-01-19 11:12 | SUR.OPER ---
Supine on padded OR bed, head on pillow, arms secured on padded arm boards at <90 degrees abduction, legs uncrossed, safety belt at thigh, tape over blanket over lower legs.
--- NOTE | 2023-01-19 11:27 | SUR.OPER ---
Lithotomy on padded OR bed, head on pillow, arms secured on padded arm boards at <90 degrees abduction. Legs secured in padded yellow fins stirrups.
--- NOTE | 2023-01-19 12:18 | PM.OP.1 ---
Operative Date/Time/Diagnoses Date of procedure: 01/19/23 Time of procedure: 12:10 Pre-op diagnosis: 1. Bilateral nephrolithiasis. 2. Retained right ureteral stent. 3. History of right pyelonephritis/sepsis. Post-op diagnosis: same Procedure & Clinicians Procedure: 1. Right extracorporeal shockwave lithotripsy (1250 shocks delivered to index right UPJ calculus, in 1250 shocks delivered to 8 mm right upper pole renal calculus at maximum power level of 7.0). 2. Cystoscopy/removal right ureteral stent. 3. Cystoscopy/placement left ureteral stent (7 Nauruan by 22-32 cm multi-length). Same procedure as scheduled: Yes Indications: 1. Bilateral nephrolithiasis. 2. Retained right ureteral stent. 3. History of right pyelonephritis/sepsis. Surgeon: Stanton Laura Anesthesia Type: General Operative Notes Findings: In the interval, the previously described 9 mm right ureteropelvic junction calculus has now migrated retrograde into the right renal pelvis. The previously described 8 mm nonobstructing right upper pole calculus remained in same position. Previously described and imaged left ureteral calculi remain unchanged in size and position. Closure Type: not applicable Specimen(s): none sent Applied: other (7 Nauruan by 20-32 cm multi-length left ureteral stent.) Estimated Blood Loss (mL): 0 Blood products transfused: none Procedure in detail: The patient was positioned supine and was administered general anesthesia. The above-described index calculus was localized in the X, Y, and Z plane over the vicinity of the right renal pelvis. Lithotripsy was begin at minimal power level for 200 shocks. A 2 minute pause was then conducted. Lithotripsy was then resumed and the power level was gradually increased to a maximum of 7.0. Treatment progress was monitored intermittently with fluoroscopy with excellent resultant stone fragmentation. At 1250 shocks the treatment head was repositioned in the 8 mm right upper pole calculus was localized in the X, Y, and Z plane. Lithotripsy was then commenced at 7.0 for total of 1250 shocks. There is excellent evidence of stone fragmentation. At a total of 2500 shocks, treatment was halted. The patient was repositioned in semi lithotomy and the perineum, genitalia, and groin were then prepped and draped in sterile fashion. The 22 Nauruan panendoscope was passed the lower urinary tract with findings as described above. A 0.35 hybrid guidewire was then advanced through the working channel of the scope and then into the left ureter advanced proximally under direct and fluoroscopic guidance. Next, a 7 Nauruan by 22-32 cm multilink stent was selected and advanced over the 0.35 guidewire and positioned satisfactorily within the left collecting system. NO RETRIEVAL LINE was left attached. Next, the foreign body grasper was advanced through the working channel of the cystoscope in the right ureteral stent was engaged at its distal aspect and removed from the right collecting system without incident. The bladder was then drained completely and all instrumentation was removed. The patient was then repositioned in supine. Patient was then awakened, transferred to [facility], and transported recovery in stable condition. Complications: none Post-operative Condition: stable Disposition: PACU Plan for aftercare: Discharge home.
[2023-01-19] MEDS: FUROSEMIDE 20 MG/2 ML VIAL IV (12:37)
== END 2023-01-19 13:47 | disposition home or self-care (01) ==
PROVIDERS: PCP Family Medicine; Referring Provider Specialist; Visit Provider Specialist
PROC: (CPT 50590; principal; 2023-01-19 10:45)
PROC: (CPT 50590; 2023-01-19 10:45)
DX: N20.0 Calculus of kidney (principal)
CPT/HCPCS: 50590; 52332; 52310; J0131; J0744; J1100; J1885; J1940; J2250; J2405; J2704; J3010

== ENCOUNTER → 2023-01-29 17:32 | Outpatient (CLI) | payer BC, SELFPAY ==
[2023-01-02 00:09] VITALS: BMI 29.2
--- NOTE | 2023-01-29 17:34 | DI.RAD.S_ITS ---
PROCEDURE: XR KUB INDICATIONS: left ureteral stent TECHNIQUE: One view of the abdomen acquired. COMPARISON: [facility], CR, XR KUB, 01/15/2023, 16:38. [facility], CR, XR KUB, 01/02/2023, 7:26. FINDINGS: Surgical changes and devices: Left-sided nephroureteral stent present. Interval removal of the right nephroureteral stent. Bowel: Bowel gas pattern is normal. Soft tissues: A couple of stones project over the left kidney, measuring 2.3 centimeters and 0.9 centimeters. Right-sided proximal ureteral stone no longer visualized. Bones: No suspicious bony lesions. IMPRESSION: Interval removal of the right-sided nephroureteral stent. Right-sided ureteral stone not visualized. Interval placement of a left-sided nephroureteral stent. Two large renal stones project over the left kidney. Dictated by: Mario Acuna M.D. on 01/30/2023 at 9:44 Approved by: Mario Acuna M.D. on 01/30/2023 at 9:45
== END ==
PROVIDERS: PCP Family Medicine; Referring Provider Specialist; Visit Provider Specialist
DX: N20.0 Calculus of kidney (principal); Z96.0 Presence of urogenital implants
CPT/HCPCS: 74018

== ENCOUNTER → 2023-01-30 17:00 | Outpatient (ROUT) | payer BC, SELFPAY ==
[2023-01-02 00:09] VITALS: BMI 29.2
[2023-02-12 12:44] LABS: Ammonium acid urate 20 % (.); Ca oxalate monohydr 40 % (.); Carbonate Apatite 40 % (.); Size 3x2 mm (.)
== END ==
PROVIDERS: PCP Family Medicine; Visit Provider Specialist
DX: N20.1 Calculus of ureter (principal)
CPT/HCPCS: 82365

== ENCOUNTER → 2023-04-06 08:42 | Outpatient (CLI) | payer BC, SELFPAY ==
[2023-01-02 00:09] VITALS: BMI 29.2
[2023-04-06 09:54] LABS: Appearance Urine UA CLEAR; Bilirubin Urine UA NEGATIVE (NEGATIVE); Color Urine UA YELLOW; Glucose Urine UA NEGATIVE (Negative); Ketones Urine UA NEGATIVE (NEGATIVE); Leukocyte Esterase Urine UA 1+ (NEGATIVE); Nitrite Urine UA NEGATIVE (Negative); Occult Blood Urine UA 3+ (Negative); Protein Urine UA 2+ (Negative); Urobilinogen Urine UA 0.2 E.U./dL (0.2)
[2023-04-06 10:01] LABS: Bacteria Urine Few (2-10); Culture Indicated Urine Specimen Cultured; RBC Urine 10-30/HPF (0-5/HPF); Squamous Epithelial Cell Urine 0-1 /HPF (0-5/HPF); WBC Urine 10-30/HPF (0-5/HPF)
== END ==
PROVIDERS: PCP Family Medicine; Referring Provider Physician Assistant Surgical; Visit Provider Physician Assistant Surgical
DX: N20.0 Calculus of kidney (principal)
CPT/HCPCS: 81001; 87086

== ENCOUNTER → 2023-04-25 15:35 | Outpatient (CLI) | payer BC, SELFPAY ==
[2023-01-02 00:09] VITALS: BMI 29.2
--- NOTE | 2023-04-25 15:39 | DI.RAD.S_ITS ---
PROCEDURE: XR KUB INDICATIONS: History of Kidney stones TECHNIQUE: One view of the abdomen acquired. COMPARISON: [facility], CR, XR KUB, 01/29/2023, 17:35. [facility], CR, XR KUB, 01/15/2023, 16:38. FINDINGS: Surgical changes and devices: Left ureteral stent is again seen. Bowel: Bowel gas pattern is normal. Soft tissues: Previously seen left renal calculi are no longer visualized. No additional renal or ureteral calculus is seen. Liver and spleen again appear to be enlarged.. Bones: No suspicious bony lesions. IMPRESSION: Stable left ureteral stent. No residual renal calculus is visualized radiographically. Approved by: Rene Dwyer M.D. on 04/25/2023 at 21:10
== END ==
PROVIDERS: PCP Family Medicine; Referring Provider Specialist; Visit Provider Specialist
DX: N20.0 Calculus of kidney (principal); Z96.0 Presence of urogenital implants
CPT/HCPCS: 74018

== ENCOUNTER → 2023-05-01 09:55 | Outpatient (CLI) | payer BC, SELFPAY ==
[2023-01-02 00:09] VITALS: BMI 29.2
== END ==
PROVIDERS: PCP Family Medicine; Visit Provider Specialist
DX: N39.0 Urinary tract infection, site not specified (principal); Z87.440 Personal history of urinary (tract) infections; Z87.442 Personal history of urinary calculi; Z96.0 Presence of urogenital implants
CPT/HCPCS: 52310; 81002; 87086; 99214

== ENCOUNTER → 2023-07-03 09:08 | Outpatient (CLI) | payer BC, SELFPAY ==
[2023-01-02 00:09] VITALS: BMI 29.2
--- NOTE | 2023-07-03 09:09 | DI.RAD.S_ITS ---
PROCEDURE: XR KUB INDICATIONS: calculus of kidney and ureter TECHNIQUE: One view of the abdomen acquired. COMPARISON: [facility], CR, XR KUB, 04/25/2023, 15:37. [facility], CR, XR KUB, 01/29/2023, 17:35. FINDINGS: Surgical changes and devices: None. Bowel: Bowel gas pattern is normal. Soft tissues: No definite recurrent ureteral calculus, although portions of the kidneys are obscured by overlying bowel. Visualized solid organ contours appear normal in size. Bones: No suspicious bony lesions. IMPRESSION: No recurrent renal calculus is visualized radiographically. Approved by: Rene Dwyer M.D. on 07/03/2023 at 17:08
== END ==
PROVIDERS: PCP Family Medicine; Referring Provider Specialist; Visit Provider Specialist
DX: N20.0 Calculus of kidney (principal); N20.1 Calculus of ureter
CPT/HCPCS: 74018

== ENCOUNTER → 2023-09-05 13:16 | Outpatient (CLI) | payer BC, SELFPAY ==
[2023-01-02 00:09] VITALS: BMI 29.2
--- NOTE | 2023-09-05 13:19 | DI.RAD.S_ITS ---
PROCEDURE: XR KUB INDICATIONS: Kidney Stones TECHNIQUE: One view of the abdomen acquired. COMPARISON: [facility], CR, XR KUB, 07/03/2023, 9:17. FINDINGS: Surgical changes and devices: None. Bowel: Bowel gas pattern is normal. Soft tissues: No suspicious abdominal calcifications. Visualized solid organ contours appear normal in size. Bones: No suspicious bony lesions. IMPRESSION: No visualized calcifications overlying the renal shadows. Dictated by: Jess Carreon M.D. on 09/05/2023 at 19:35 Approved by: Jess Carreon M.D. on 09/05/2023 at 19:35
== END ==
PROVIDERS: PCP Family Medicine; Referring Provider Specialist; Visit Provider Specialist
DX: N20.0 Calculus of kidney (principal)
CPT/HCPCS: 74018

== ENCOUNTER → 2024-06-10 12:46 | Outpatient (CLI) | payer BC, SELFPAY ==
[2023-12-12 15:33] VITALS: BMI 29.2
--- NOTE | 2024-06-10 12:47 | DI.RAD.S_ITS ---
PROCEDURE: XR KUB one view INDICATIONS: History of renal calculi TECHNIQUE: One view of the abdomen acquired. COMPARISON: [facility], CR, XR KUB, 09/05/2023, 13:24. FINDINGS: Moderate amount of stool throughout the colon and rectum in a pattern of constipation, obstipation. Several small 1 mm and 2 mm calcifications are projected over the superior mid and inferior aspects of the right kidney, new or more conspicuous than on the prior exam. The left kidney is obscured by overlying bowel gas. Mild degenerative changes lower lumbar spine and hips. No abnormally dilated bowel, no free gas. IMPRESSION: Moderate pattern of constipation, obstipation increased. Several 1 mm and 2 mm calcifications are projected over the right kidney, new or more conspicuous than on the prior exam. The left kidney is obscured by overlying bowel gas. If symptoms persist or worsen, or there is high clinical suspicion of acute abnormality, CT could be performed. Dictated by: Ck Willsi M.D. on 06/10/2024 at 13:06 Approved by: Ck Willis M.D. on 06/10/2024 at 13:09
== END ==
PROVIDERS: PCP Family Medicine; Referring Provider Urology; Visit Provider Urology
DX: N20.0 Calculus of kidney (principal); K59.00 Constipation, unspecified; Z87.442 Personal history of urinary calculi
CPT/HCPCS: 74018

== ENCOUNTER → 2025-02-02 09:01 | Outpatient (CLI) | payer BC, SELFPAY ==
[2023-12-12 15:33] VITALS: BMI 29.2
--- NOTE | 2025-02-02 09:03 | DI.MG.S_ITS ---
MM screening mammo BI: 02/02/2025. BI-RADS: 1 CLINICAL: 59-year old female for bilateral screening mammogram. Tyrer-Cuzick lifetime risk of 7.7%. No personal or first-degree family history of breast cancer. PRIOR EXAMS 06/02/2020, 07/17/2019, 06/27/2019. MAMMOGRAPHY TECHNIQUE: 2D and 3D (tomosynthesis) digital mammographic views obtained, with additional images as needed for full coverage. Current study was also evaluated with a Computer Aided Detection (CAD) system. DENSITY C. The breasts are heterogeneously dense, which may obscure small masses. MAMMOGRAPHY FINDINGS Bilateral: No suspicious mass, asymmetry, microcalcification, or other abnormality seen. IMPRESSION: * No evidence of malignancy. RECOMMENDATIONS Bilateral * Annual screening mammography. OVERALL ASSESSMENT CATEGORY BI-RADS-1: Negative. The [employer] recommends annual screening mammography beginning at age 40 for women with average risk of breast cancer. ELECTRONICALLY SIGNED: Cal Richmond M.D. on 02/02/2025 at 12:10:52 PM PT Interpreting Station ID: [id number]
== END ==
PROVIDERS: PCP Family Medicine; Referring Provider Family Medicine; Visit Provider Family Medicine
DX: Z12.31 Encounter for screening mammogram for malignant neoplasm of breast (principal); R92.333 Mammographic heterogeneous density, bilateral breasts
CPT/HCPCS: 77063; 77067

== ENCOUNTER → 2025-07-24 17:15 | Outpatient (ROUT) | payer BC, SELFPAY ==
[2023-12-12 15:33] VITALS: BMI 29.2
== END ==
PROVIDERS: PCP Family Medicine
DX: L03.90 Cellulitis, unspecified (principal); Z79.899 Other long term (current) drug therapy; L30.9 Dermatitis, unspecified; L73.8 Other specified follicular disorders
CPT/HCPCS: 87070; 87075; 87077; 87186; 87205

== ENCOUNTER → 2025-08-13 10:44 | Outpatient (CLI) | payer BC, SELFPAY ==
[2023-12-12 15:33] VITALS: BMI 29.2
== END ==
PROVIDERS: PCP Family Medicine
DX: L24.9 Irritant contact dermatitis, unspecified cause (principal); L30.9 Dermatitis, unspecified; Z79.899 Other long term (current) drug therapy
CPT/HCPCS: 36415; 86038

== ENCOUNTER → 2025-08-27 16:30 | Outpatient (CLI) | payer BC, SELFPAY ==
[2023-12-12 15:33] VITALS: BMI 29.2
== END ==
PROVIDERS: PCP Family Medicine
DX: L23.89 Allergic contact dermatitis due to other agents (principal); L24.9 Irritant contact dermatitis, unspecified cause; L29.9 Pruritus, unspecified; M33.90 Dermatopolymyositis, unspecified, organ involvement unspecified; M79.10 Myalgia, unspecified site; R21 Rash and other nonspecific skin eruption; R53.1 Weakness; R79.89 Other specified abnormal findings of blood chemistry; Z79.899 Other long term (current) drug therapy
CPT/HCPCS: 36415